=== PATIENT | female | born 1990 ===

== ENCOUNTER 2021-10-28 17:42 | Outpatient (CLI) | payer SELFPAY ==
[2021-10-29 02:29] VITALS: BP 106/64
[2021-10-29] MEDS ORDERED: LACTATED RINGERS 1,000 ML IV ONE (03:00)
== END 2021-10-29 04:35 | disposition home or self-care (01) ==
LOC: TRG 10-29 01:50 → APU 10-29 01:52 → TRG 10-29 04:35
PROVIDERS: ATTEND Obstetrics & Gynecology
DX: O21.2 Late vomiting of pregnancy (principal); O26.893 Other specified pregnancy related conditions, third trimester; R05.9 Cough, unspecified; R52 Pain, unspecified; R42 Dizziness and giddiness; Z3A.33 33 weeks gestation of pregnancy
CPT/HCPCS: 36415; 59025; 84112; 96360; J7120

== ENCOUNTER 2021-12-14 07:59 | Inpatient (IN) | payer SELFPAY ==
[2021-12-14] MEDS ORDERED: TERBUTALINE 1 MG/1 ML INJ SUB-Q PRN (11:09)
[2021-12-14] MEDS ORDERED: OXYTOCIN 10 UNIT/1 ML INJ IM PRN (11:09)
[2021-12-14] MEDS ORDERED: miSOPROStol 200 MCG TAB PR PRN (11:09)
[2021-12-14] MEDS ORDERED: ACETAMINOPHEN 325 MG TAB PO PRN (11:09)
[2021-12-14] MEDS ORDERED: LIDOCAINE (2%) 20 MG/1 ML VIAL 20 ML MDV INFILTRATI ONE (11:09)
[2021-12-14] MEDS ORDERED: fentaNYL 100 MCG/2 ML INJ IV PRN (11:09)
[2021-12-14] MEDS ORDERED: CARBOPROST TROMETHAMINE 250 MCG/1 ML INJ IM PRN (11:09)
[2021-12-14] MEDS ORDERED: METHYLERGONOVINE MALEATE 0.2 MG/ML VIAL IM PRN (11:09)
[2021-12-14] MEDS ORDERED: LOPERAMIDE 2 MG CAP PO PRN (11:09)
[2021-12-14] MEDS ORDERED: ePHEDrine SULFATE 50 MG/1 ML INJ IV PRN (11:09)
[2021-12-14] MEDS ORDERED: MINERAL OIL 30 ML ORAL LIQD PO PRN (11:09)
[2021-12-14] MEDS ORDERED: DINOPROSTONE 10 MG VAG SUPP VG SCH (11:15)
[2021-12-14] MEDS ORDERED: OXYTOCIN DRIP 30 UNITS/500 ML BAG IV SCH ×2 (12:00)
[2021-12-14 12:01] LABS: Hematocrit 32.9 % (30.3-42.9); Mean Corpuscular HGB Conc 33 % (30-34); Mean Corpuscular Volume 83 fl (79-97); Platelet Count 292 K/mm3 (140-440); Red Blood Count 3.96 M/mm3 (3.65-5.03)
[2021-12-14] MEDS: LACTATED RINGERS 1,000 ML IV SCH ×2 (14:43→21:38)
--- NOTE | 2021-12-14 16:05 | History and Physical Report ---
History of Present Illness Date of examination: 12/14/21 Date of admission: 12/14/21 07:59 Chief complaint: "Sent to [facility] by my doctor for an induction" History of present illness: 32 y/o was sent to [facility] for an IOL @ 40.3 wks r/t postdates. Pt denies UC, LOF, or VB and admits to active FM. She initated her PNC @ [facility] @ 9.1 wks. An enlarged bladder was noticed on her us and pt was referred to [facility] for further mtg. Pt did not go to [facility] r/t cost of care. Pt has a hx of anemia and her GBS is neg. Surgical/social hx is unremarkable. She has a family hx of DM. Pt has a hx of delivering a 9 lb fetus. Past History Past Medical History: other (anemia, Enlarged bladder) Past Surgical History: no surgical history Family/Genetic History: diabetes Social history: no significant social history, , full code - Obstetrical History Expected Date of Delivery: 12/12/21 Actual Gestation: 40 Week(s) 2 Day(s) : 3 Para: 2 Hx # Term Pregnancies: 2 Number of Living Children: 2 Medications and Allergies Allergies Allergy/AdvReac Type Severity Reaction Status Date / Time No Known Allergies Allergy Verified 10/29/21 03:05 Active Meds: Active Medications Acetaminophen (Acetaminophen 325 Mg Tab) 650 mg PO Q4H PRN PRN Reason: Pain, Mild (1-3) Butorphanol Tartrate (Butorphanol 2 Mg/1 Ml Inj) 1 mg IV Q2H PRN PRN Reason: Pain, Moderate(4-6) LABOR PAIN Carboprost Tromethamine (Carboprost Tromethamine 250 Mcg/1 Ml Inj) 250 mcg IM ONCE PRN PRN Reason: Uterine Bleeding Dinoprostone (Dinoprostone 10 Mg Vag Supp) 10 mg VG ONCE GLORIA Stop: 12/14/21 23:00 Last Admin: 12/14/21 15:00 Dose: 10 mg Ephedrine Sulfate (Ephedrine Sulfate 50 Mg/1 Ml Inj) 10 mg IV Q2M PRN PRN Reason: Hypotension Fentanyl (Fentanyl 100 Mcg/2 Ml Inj) 100 mcg IV Q2H PRN PRN Reason: Pain,Severe (7-10) LABOR PAIN Oxytocin/Sodium Chloride (Pitocin/Ns 30 Unit/500ml) 30 units in 500 mls @ 2 mls/hr IV TITR GLORIA; Protocol Lactated Ringer's (Lactated Ringers) 1,000 mls @ 125 mls/hr IV DIRECT GLORIA Last Admin: 12/14/21 14:43 Dose: 125 mls/hr Oxytocin/Sodium Chloride (Pitocin/Ns 30 Unit/500ml) 30 units in 500 mls @ 2 mls/hr IV TITR GLORIA; Protocol Loperamide HCl (Loperamide 2 Mg Cap) 2 mg PO ONCE PRN PRN Reason: give with Hemabate Methylergonovine Maleate (Methylergonovine Maleate 0.2 Mg/Ml Vial) 0.2 mg IM ONCE PRN PRN Reason: Uterine Bleeding Mineral Oil (Mineral Oil 30 Ml Oral Liqd) 30 ml PO QHS PRN PRN Reason: Constipation Misoprostol (Misoprostol 200 Mcg Tab) 800 mcg NH ONCE PRN PRN Reason: Uterine Bleeding Oxytocin (Oxytocin 10 Unit/1 Ml Inj) 10 unit IM ONCE PRN PRN Reason: Uterine Bleeding Terbutaline Sulfate (Terbutaline 1 Mg/1 Ml Inj) 0.25 mg SUB-Q ONCE PRN PRN Reason: Hyperstimulation/Hypertonicity Review of Systems All systems: negative Eyes: deferred Ears, nose, mouth and throat: deferred Breasts: normal Genitourinary: normal appearance Rectal Exam: deferred - Vital Signs Vital signs: Vital Signs Pulse BP 100 H 118/84 12/14/21 08:28 12/14/21 08:28 Temp Pulse Resp BP Pulse Ox 99.1 F 86 20 112/76 95 12/14/21 15:04 12/14/21 15:55 12/14/21 15:04 12/14/21 15:28 12/14/21 15:55 - Physical Exam Breasts: Positive: normal Abdomen: Positive: normal appearance, soft, normal bowel sounds Genitourinary (Female): Positive: normal external genitalia, normal perenium Vulva: both: normal Vagina: Positive: normal moisture Uterus: Positive: enlarged, normal contour, other (gravid) Anus/Rectum: Positive: normal perianal skin Extremities: Positive: normal - Obstetrical FHR: auscultation normal, category 1 Uterine Contraction Monitor Mode: External Cervical Dilatation: 0 Cervical Effacement Percentage: 0 station: -4 Uterine Contraction Pattern: Absent Uterine Tone Measurement Phase: Resting Results Result Diagrams: 12/14/21 10:00 All other labs normal. Assessment and Plan A: IUP@ 40.3 wks (IOL for postdates) Enlarged bladder per US Hx of anemia Neg GBS P: Admit to L&D for Cervidil IOL Continuous monitoring Pain med/Epidural prn Notify NICU of status Anticipate - Patient Problems (1) Supervision of normal IUP (intrauterine ) in multigravida Current Visit: Yes Status: Acute
[2021-12-14] MEDS: BUTORPHANOL 2 MG/1 ML INJ IV PRN (21:58)
[2021-12-15] MEDS: LACTATED RINGERS 1,000 ML IV SCH (00:53)
[2021-12-15] MEDS: BUTORPHANOL 2 MG/1 ML INJ IV PRN (00:53)
--- NOTE | 2021-12-15 01:03 | Ultrasound Report ---
ULTRASOUND OBSTETRIC LIMITED INDICATION / CLINICAL INFORMATION: Post-due date. Estimated weight and LIBAN Clinical Gestational Age (GA) in weeks, days: 40 weeks 4 days TECHNIQUE: Transabdominal. COMPARISON: None available. FINDINGS: HEART RATE (beats per minute): 135 AMNIOTIC FLUID INDEX (cm) = 9.7 (normal = 7-24 cm) PRESENTATION: Cephalic. ADDITIONAL FINDINGS: Biparietal Diameter = 10.09 cm = 41, 4 weeks, days Head Circumference = 32.5 cm = 37, 0 weeks, days Abdominal Circumference = 34.8 cm = 38, 5 weeks, days Femur Length = 6.7 cm = 34, 5 weeks, days Average Ultrasound Age (AUA) = 37, 6 weeks, days Estimated weight 3327 g IMPRESSION: 1. Single living fetus with composite gestational age of 7 weeks 6 days and estimated weight of 3327 g. Signer Name: Ochoa Aragon II, MD Signed: 12/15/2021 12:59 AM Workstation Name: [id number]
[2021-12-15] MEDS ORDERED: LIDOCAINE (2%) 20 MG/1 ML VIAL 20 ML MDV INFILTRATI ONE (02:34)
[2021-12-15] MEDS ORDERED: ONDANSETRON 4 MG/2 ML INJ IV PRN (03:30)
[2021-12-15] MEDS ORDERED: MAGNESIUM HYDROXIDE (MOM) ORAL LIQD UDC PO PRN (03:30)
[2021-12-15] MEDS ORDERED: HYDROcodone/ACETAMINOPHEN 5-325 MG TAB PO PRN (03:30)
[2021-12-15] MEDS ORDERED: LANOLIN/ZINC/DIMETHICONE (LANSINOH) 7 GM TP PRN (03:30)
[2021-12-15] MEDS ORDERED: WITCH HAZEL/ GLYCERIN PAD TP PRN (03:30)
[2021-12-15] MEDS ORDERED: PROMETHAZINE 25 MG TAB PO PRN (03:30)
[2021-12-15] MEDS ORDERED: diphenhydrAMINE 25 MG CAP PO PRN (03:30)
[2021-12-15] MEDS ORDERED: ACETAMINOPHEN 325 MG TAB PO PRN (03:30)
[2021-12-15] MEDS ORDERED: BENZOCAINE/MENTHOL 20/0.5% TOP SPRAY 56 GM TP PRN (03:30)
--- NOTE | 2021-12-15 03:36 | Procedure Note ---
OB Delivery Note - Delivery Date of Delivery: 12/15/21 Surgeon: LUIS EDUARDO WRIGHT Estimated blood loss: 300cc - Vaginal Delivery presentation: vertex Delivery position: OA Intrapartum events: meconium (Terminal meconium, meconium-stained placenta) Delivery induction: cervidil Delivery monitor: external FHT, external uterine Route of delivery: Delivery placenta: spontaneous Delivery cord: nuchal cord, 3 umbilical vessels (Nuchal cord x3 (manually reduced)) Episiotomy: none Delivery laceration: none Anesthesia: none - A at 1 minute: 7 at 5 minutes: 9 Gender: Male
[2021-12-15 05:29] LABS: Hematocrit 32.1 % (30.3-42.9); Hemoglobin 10.4 gm/dl (10.1-14.3); Mean Corpuscular HGB Conc 33 % (30-34); Mean Corpuscular Volume 85 fl (79-97); Platelet Count 242 K/mm3 (140-440); Red Cell Distribution Width 14.8 % (13.2-15.2)
[2021-12-15] MEDS: IBUPROFEN 800 MG TAB PO SCH ×4 (07:44→20:44)
[2021-12-15] MEDS: DOCUSATE SODIUM 100 MG CAP PO SCH ×2 (09:25→22:58)
[2021-12-15] MEDS: FERROUS SULFATE 325 MG TAB PO SCH ×2 (09:25→22:58)
[2021-12-15] MEDS: PRENATAL VIT27-FE FUMARATE-FOLIC ACID VIT TAB PO SCH (09:25)
--- NOTE | 2021-12-15 11:22 | Progress Note ---
Assessment and Plan A: day of delivery S/P . Anemia. P: Supplement with iron. Continue routine care. Subjective - Subjective Date of service: 12/15/21 Principal diagnosis: day of delivery Patient reports: appetite normal, voiding normally, pain well controlled, flatus, ambulating normally, no dizzy ambulation, no nauseated [place]: doing well Objective - Vital Signs Latest vital signs: Vital Signs Temp Pulse Resp BP BP Pulse Ox Pulse Ox 12/15/21 08:04 98.6 F 75 18 123/70 96 12/15/21 07:56 96 12/15/21 06:00 98.8 F 75 18 113/63 95 98 12/15/21 05:14 87 97 12/15/21 05:09 90 96 12/15/21 05:04 85 96 12/15/21 04:59 89 95 12/15/21 04:58 85 119/74 12/15/21 04:57 100 H 94 12/15/21 04:54 96 H 95 12/15/21 04:49 90 95 12/15/21 04:48 87 94 12/15/21 04:44 77 95 12/15/21 04:40 89 94 12/15/21 04:39 96 H 96 12/15/21 04:34 90 94 12/15/21 04:29 90 94 12/15/21 04:28 88 116/63 94 12/15/21 04:24 95 H 96 12/15/21 04:19 110 H 96 12/15/21 04:14 86 97 12/15/21 04:09 103 H 97 12/15/21 04:04 105 H 96 12/15/21 04:03 95 H 94 12/15/21 03:59 95 H 128/80 96 12/15/21 03:54 85 97 12/15/21 03:49 103 H 96 12/15/21 03:48 80 94 12/15/21 03:44 94 H 95 12/15/21 03:40 102 H 92 12/15/21 03:39 97 H 98 12/15/21 03:34 98 H 98 12/15/21 03:29 100 H 97 12/15/21 03:28 89 105/58 12/15/21 03:24 90 98 12/15/21 03:19 103 H 96 12/15/21 03:18 85 12/15/21 03:13 146 H 81 L 12/15/21 02:59 103 H 119/60 12/15/21 02:55 78 79 L 12/15/21 02:53 103 H 97 12/15/21 02:49 96 H 83 L 12/15/21 02:48 95 H 97 12/15/21 02:43 93 H 96 12/15/21 02:38 91 H 96 12/15/21 02:33 89 97 12/15/21 02:29 117 H 101/57 87 12/15/21 02:28 98 H 98 12/15/21 02:24 99 H 90 12/15/21 02:22 92 H 98 12/15/21 02:18 84 85 12/15/21 02:17 92 H 98 12/15/21 02:12 80 96 12/15/21 02:10 86 94 12/15/21 02:07 89 98 12/15/21 02:05 90 94 12/15/21 02:02 84 98 12/15/21 02:00 85 127/71 12/15/21 01:57 71 95 12/15/21 01:52 76 97 12/15/21 01:47 71 96 12/15/21 01:43 86 93 12/15/21 01:42 105 H 96 12/15/21 01:37 88 96 12/15/21 01:32 108 H 97 12/15/21 01:31 75 88 12/15/21 01:28 87 131/70 12/15/21 01:27 84 96 12/15/21 01:22 77 96 12/15/21 01:17 79 96 12/15/21 01:14 84 94 12/15/21 01:12 87 94 12/15/21 01:09 84 92 12/15/21 01:07 79 92 12/15/21 01:02 73 90 12/15/21 00:59 98.6 F 20 96 12/15/21 00:58 77 123/65 12/15/21 00:57 85 95 12/15/21 00:52 86 96 12/15/21 00:47 70 99 12/15/21 00:45 100 H 92 12/15/21 00:42 99 H 98 12/15/21 00:37 84 98 12/15/21 00:32 83 96 12/15/21 00:28 69 133/67 1822 00:27 79 97 12/15/21 00:22 72 96 12/15/21 00:17 94 H 99 12/15/21 00:12 77 99 12/15/21 00:07 84 99 12/15/21 00:02 79 97 12/14/21 23:58 75 121/74 12/14/21 23:57 89 98 12/14/21 23:52 78 98 12/14/21 23:47 85 98 12/14/21 23:42 85 97 12/14/21 23:37 72 99 12/14/21 23:32 87 97 12/14/21 23:21 83 100 12/14/21 23:16 82 98 12/14/21 23:11 85 98 12/14/21 23:06 90 97 12/14/21 23:01 80 98 12/14/21 23:00 96 H 111/58 12/14/21 22:56 81 96 12/14/21 22:53 79 94 12/14/21 22:51 73 95 12/14/21 22:46 76 95 12/14/21 22:41 75 95 12/14/21 22:36 76 95 12/14/21 22:31 73 95 12/14/21 22:29 81 120/71 94 12/14/21 22:26 72 95 12/14/21 22:21 81 96 12/14/21 22:16 93 H 96 12/14/21 22:11 80 94 12/14/21 22:06 81 97 12/14/21 22:01 95 H 96 1722 21:59 91 H 111/55 94 1722 21:56 91 H 97 1722 21:51 86 97 1722 21:46 95 H 97 021722 21:41 78 96 1722 21:36 93 H 96 0222 21:31 102 H 97 1722 21:29 87 111/58 94 1722 21:26 98 H 97 1722 21:21 104 H 98 021722 21:16 100 H 96 021722 21:11 92 H 97 12/14/21 21:06 83 96 02 21:01 92 H 98 12/14/21 20:59 86 122/81 0222 20:56 89 97 02 20:51 88 97 0222 20:46 95 H 96 0222 20:45 94 H 94 12/14/21 20:41 88 97 12/14/21 20:36 93 H 98 12/14/21 20:31 87 96 12/14/21 20:29 80 132/73 02 20:26 86 97 12/14/21 20:21 93 H 97 12/14/21 20:16 86 97 12/14/21 20:11 92 H 97 12/14/21 20:06 95 H 97 12/14/21 20:01 93 H 95 12/14/21 20:00 93 H 128/72 12/14/21 19:56 91 H 97 12/14/21 19:51 91 H 97 12/14/21 19:46 97 H 95 12/14/21 19:41 99.4 F 86 18 97 12/14/21 19:36 98 H 98 12/14/21 19:31 102 H 97 12/14/21 19:29 93 H 120/76 12/14/21 19:28 97 12/14/21 19:26 95 H 97 12/14/21 19:21 96 H 96 12/14/21 19:16 89 97 12/14/21 19:11 87 95 12/14/21 19:06 83 96 12/14/21 19:01 102 H 97 12/14/21 18:59 101 H 114/67 12/14/21 18:56 89 97 12/14/21 18:51 93 H 96 12/14/21 18:46 97 H 97 12/14/21 18:30 100 H 99 02 18:28 111 H 118/74 02 18:25 133 H 99 02 18:20 103 H 99 22 18:15 91 H 97 12/14/21 18:10 91 H 98 02 18:05 95 H 98 12/14/21 18:00 91 H 99 12/14/21 17:59 83 100/62 02 17:55 79 98 12/14/21 17:50 99 H 98 12/14/21 17:45 87 98 12/14/21 17:40 80 99 12/14/21 17:35 88 99 12/14/21 17:30 84 98 12/14/21 17:25 92 H 96 12/14/21 17:20 82 97 12/14/21 17:15 86 99 12/14/21 17:10 88 99 12/14/21 17:05 95 H 99 12/14/21 17:00 89 97 12/14/21 16:59 84 121/78 12/14/21 16:55 100 H 97 12/14/21 16:50 95 H 96 12/14/21 16:45 94 H 96 12/14/21 16:40 99 H 97 12/14/21 16:35 98 H 98 12/14/21 16:30 102 H 98 12/14/21 16:29 81 120/74 12/14/21 16:25 92 H 98 12/14/21 16:20 84 97 12/14/21 16:15 90 98 12/14/21 16:10 102 H 98 12/14/21 16:05 89 98 12/14/21 16:00 99 H 98 12/14/21 15:58 98 H 109/74 12/14/21 15:55 86 95 12/14/21 15:50 94 H 96 12/14/21 15:45 88 96 12/14/21 15:40 98 H 96 12/14/21 15:35 85 96 12/14/21 15:30 81 95 12/14/21 15:28 86 112/76 12/14/21 15:25 85 96 12/14/21 15:20 83 98 12/14/21 15:15 80 99 12/14/21 15:10 89 96 12/14/21 15:05 102 H 97 12/14/21 15:04 99.1 F 96 H 20 122/80 97 12/14/21 15:00 94 H 98 12/14/21 14:58 100 H 122/80 12/14/21 14:55 98 H 99 12/14/21 14:50 92 H 97 12/14/21 14:45 98 H 98 12/14/21 14:40 96 H 97 12/14/21 14:35 96 H 98 12/14/21 14:30 88 98 12/14/21 14:28 85 114/78 12/14/21 14:25 97 H 98 12/14/21 14:20 84 96 12/14/21 14:19 109 H 115/77 12/14/21 13:21 89 98 12/14/21 13:16 85 98 12/14/21 13:11 88 98 12/14/21 13:06 85 98 12/14/21 13:01 91 H 98 12/14/21 12:56 98 H 96 12/14/21 12:51 99 H 96 12/14/21 12:46 94 H 100 12/14/21 12:41 126 H 98 12/14/21 12:36 125 H 98 12/14/21 12:31 116 H 97 12/14/21 12:26 84 96 12/14/21 12:21 103 H 98 12/14/21 12:16 113 H 96 12/14/21 12:11 111 H 97 12/14/21 12:06 103 H 98 12/14/21 12:01 104 H 98 12/14/21 11:56 118 H 98 12/14/21 11:51 94 H 99 12/14/21 11:46 106 H 96 12/14/21 11:41 100 H 96 12/14/21 11:36 121 H 98 12/14/21 11:31 115 H 98 12/14/21 11:26 94 H 97 12/14/21 11:21 107 H 98 Intake and Output 12/14/21 12/15/21 12/15/21 23:59 07:59 15:59 Intake Total 864.583 406.25 Output Total 100 Balance 864.583 306.25 Intake: IV 864.583 406.25 Lactated Ringers 1,000 ml 864.583 406.25 @ 125 mls/hr IV DIRECT GLORIA Rx#:[id number] Output: Urine 100 Void 100 Other: Total, Output Amount 100 # Voids Void 1 Estimated Blood Loss 300 - Exam Abdomen: Present: normal appearance, soft. Absent: distention, tenderness, guarding, rigidity Uterus: Present: normal, firm, fundal height below umbilicus. Absent: bogginess, tenderness Extremities: Absent: tenderness - Labs Labs: Abnormal lab results 12/15/21 Range/Units 03:55 WBC 14.5 H (4.5-11.0) K/mm3
[2021-12-16] MEDS: IBUPROFEN 800 MG TAB PO SCH ×2 (02:45→11:09)
--- NOTE | 2021-12-16 07:29 | Progress Note ---
Assessment and Plan A: day 1 S/P . Anemia. P: Discharge patient home today. Discussed with patient discharge instructions and warning signs. Advised patient to continue taking her vitamin and iron supplement at home. Advised patient to avoid intercourse, lifting, housework. Advised patient to follow up at [facility] in 2 weeks. Patient voiced understanding of all instructions. Subjective - Subjective Date of service: 12/16/21 Principal diagnosis: day 1 S/P Interval history: Patient requests discharge home today. Patient reports: appetite normal, voiding normally, pain well controlled, flatus, ambulating normally, no dizzy ambulation, no nauseated [place]: doing well Objective - Vital Signs Latest vital signs: Vital Signs Temp Pulse Resp BP BP Pulse Ox Pulse Ox 12/16/21 02:45 18 12/16/21 00:46 98.7 F 87 18 106/59 94 12/15/21 20:45 96 12/15/21 20:44 18 12/15/21 16:09 98.1 F 91 H 18 93/57 96 12/15/21 12:29 86 18 117/71 94 12/15/21 08:04 98.6 F 75 18 123/70 96 12/15/21 07:56 96 Intake and Output 12/15/21 12/15/21 12/16/21 15:59 23:59 07:59 Intake Total 400 760 240 Output Total 350 Balance 50 760 240 Intake: Oral 300 760 240 Intake, Free Water 100 Output: Urine 350 Void 350 Other: Total, Intake Amount 300 120 120 Total, Output Amount 350 # Voids Void 1 1 1 - Exam Cardiovascular: Present: Regular rate Lungs: Present: Clear to auscultation Abdomen: Present: normal appearance, soft. Absent: distention, tenderness, guarding, rigidity Uterus: Present: normal, firm, fundal height below umbilicus. Absent: bogginess, tenderness Extremities: Absent: tenderness
--- NOTE | 2021-12-16 07:31 | Discharge Summary ---
Providers - Providers Date of Admission: 12/14/21 07:59 Date of discharge: 12/16/21 Attending physician: BRENDA OSPINA Primary care physician: ERIC BAIG MD Hospitalization Reason for admission: induction of labor Delivery: Episiotomy: none Laceration: none Other procedures: none complications: none Discharge diagnosis: IUP at term delivered [place] baby: male Pertinent studies: Labs Hospital course: Stable hospital course Condition at discharge: Good Disposition: 01 HOME / SELF CARE / HOMELESS - Discharge Diagnoses (1) Term delivered Status: Acute (2) Anemia Status: Acute Plan - Provider Discharge Summary Activity: routine, no sex for 6 weeks, no heavy lifting 4 weeks, no strenuous exercise Diet: routine Instructions: routine Additional instructions: Continue taking your vitamin and iron supplement at home. Follow up at [facility] in 2 weeks. Call your doctor immediately for: * Fever > 100.5 * Heavy vaginal bleeding ( >1 pad per hour) * Severe persistent headache * Shortness of breath * Reddened, hot, painful area to leg or breast - Follow up plan Follow up: PRIMARY MD JOVANNI [Primary Care Provider] - 14 Days
[2021-12-16] MEDS: DOCUSATE SODIUM 100 MG CAP PO SCH (11:09)
[2021-12-16] MEDS: FERROUS SULFATE 325 MG TAB PO SCH (11:09)
[2021-12-16] MEDS: PRENATAL VIT27-FE FUMARATE-FOLIC ACID VIT TAB PO SCH (11:09)
[2021-12-16 20:06] VITALS: BP 110/70
== END 2021-12-16 18:00 | disposition home or self-care (01) | DRG 807 ==
LOC: LD 07:59 → OB 12-15 06:07
PROVIDERS: ADMIT Obstetrics & Gynecology; ATTEND Obstetrics & Gynecology
PROC: 10E0XZZ Delivery of Products of Conception, External Approach (ICD-10-PCS; principal; 2021-12-15)
PROC: 3E0P7VZ Introduction of Hormone into Female Reproductive, Via Natural or Artificial Opening (ICD-10-PCS; 2021-12-15)
DX: O77.0 Labor and delivery complicated by meconium in amniotic fluid (principal); Z37.0 Single live birth; O48.0 Post-term pregnancy; Z3A.40 40 weeks gestation of pregnancy; Z20.822 Contact with and (suspected) exposure to COVID-19; O69.81X0 Labor and delivery complicated by cord around neck, without compression, not applicable or unspecified; O90.81 Anemia of the puerperium
CPT/HCPCS: 36415; 59200; 76805; 76816; 85027; 86850; 86900; 86901; G0378; J0595; J7120; U0003